=== PATIENT | female | born 1980 | race Caucasian/White ===

== ENCOUNTER → 2024-05-28 15:05 | Outpatient (REF) | payer OTHER, SELFPAY | LOC: WDC 15:05 | DX: Z12.31 Encounter for screening mammogram for malignant neoplasm of breast (principal) | CPT/HCPCS: 77063; 77067 ==

== ENCOUNTER → 2025-05-29 14:13 | Outpatient (REF) | payer OTHER, SELFPAY | LOC: WDC 14:13 | DX: Z12.31 Encounter for screening mammogram for malignant neoplasm of breast (principal) | CPT/HCPCS: 77063; 77067 ==

== ENCOUNTER → 2025-05-30 19:32 | Outpatient (REF) | payer OTHER, SELFPAY | LOC: MRI 3T 19:32 | PROVIDERS: ATTENDING PHYSICIAN Physician Assistant | DX: H93.A1 Pulsatile tinnitus, right ear (principal) | CPT/HCPCS: 70543; 70553; A9575 ==

== ENCOUNTER → 2025-09-20 16:31 | Outpatient (REF) | payer OTHER, SELFPAY | LOC: RAD 16:31 | PROVIDERS: ATTENDING PHYSICIAN Obstetrics & Gynecology | DX: N92.0 Excessive and frequent menstruation with regular cycle (principal) | CPT/HCPCS: 76830; 76856 ==

== ENCOUNTER 2025-10-21 06:22 | Day surgery (SDC) | payer OTHER, SELFPAY | END 2025-10-21 09:33 | disposition home or self-care (01) | LOC: GI 06:22 | PROVIDERS: ATTENDING PHYSICIAN Internal Medicine Gastroenterology | DX: Z12.11 Encounter for screening for malignant neoplasm of colon (principal); K62.1 Rectal polyp | CPT/HCPCS: 45380; 88305 ==